=== PATIENT | female | born 1985 | race Caucasian/White ===

== ENCOUNTER 2017-08-20 13:16 | Inpatient (IN) | payer OTHER ==
[2017-08-20 13:35] VITALS: BMI 27.4
--- NOTE | 2017-08-20 14:38 | OBHP ---
Datetime: 08/20/2017 14:27 IP Adm Impression: Term, intrauterine IP Admit Plan: Admit to unit; Initiate Section protocol Admit Comment, IP Provider: 31 yo edc 517 by lmp _ 12wk us presents w/ ctxs rated 6/10 initial ly q1hr anow q 10 min. denies coitus, bleeding, srom or decreased fm. states ob course unremarkable. pmhx: denies pshx: denies obhx: cdx1 for breech nkda medic:pnv; fesor i: 37.5wks latent phase labor maternal tachycardia p: pt d/w dr oscar admit ekg for repeat cd ua, cbc, preop labs Pelvic Type - PN: Adequate Extremities - PN: Normal Abdomen - PN: Normal Lungs - PN: Normal Heart - PN: Abnormal Neurologic - PN: Normal HEENT - PN: Normal General - PN: Normal Presentation-Admit: Vertex FHR - Baseline A Provider: 130 Membranes, Provider: Intact EGA AdmitDate IP: 37.5 IP Chief Complaint: Other NICHD Variability Prov Fetus A: Moderate 6-25bpm NICHD Accel Fetus A IP Provider: 15X15 FHR Category Provider Fetus A: Category I NICHD Decel Fetus A IP Provider: None Dilatation, Provider: 0 Effacement, Provider: 0 Station, Provider: 0 Genitourinary Exam: Normal
--- NOTE | 2017-08-20 14:41 | OBADHP ---
Datetime: 08/20/2017 14:38 Admit Comment, IP Provider: 31 yo edc / by lmp _ 12wk us presents w/ ctxs rated 6/10 initial ly q1hr anow q 10 min. denies coitus, bleeding, srom or decreased fm. states ob course unremarkable. pmhx: denies pshx: denies obhx: cdx1 for breech nkda medic:pnv; fesor i: 37.5wks latent phase labor maternal tachycardia p: pt d/w dr oscar admit ekg for repeat cd ua, cbc, preop labs Datetime: 08/20/2017 14:27 Pelvic Type - PN: Adequate Extremities - PN: Normal Abdomen - PN: Normal Lungs - PN: Normal Heart - PN: Abnormal Neurologic - PN: Normal HEENT - PN: Normal General - PN: Normal Presentation-Admit: Vertex FHR - Baseline A Provider: 130 Membranes, Provider: Intact IP Chief Complaint: Other NICHD Variability Prov Fetus A: Moderate 6-25bpm NICHD Accel Fetus A IP Provider: 15X15 FHR Category Provider Fetus A: Category I NICHD Decel Fetus A IP Provider: None Dilatation, Provider: 0 Effacement, Provider: 0 Station, Provider: 0 Genitourinary Exam: Normal EGA AdmitDate IP: 37.5 IP Adm Impression: Term, intrauterine IP Admit Plan: Admit to unit; Initiate Section protocol
[2017-08-20 15:01] LABS: BASO % 0.2 % (0.0-2.0); EOS # 0.1 K/uL (0.0-0.7); EOS % 0.6 % (0.0-4.0); HEMOGLOBIN 11.7 g/dL (11.0-16.0); LYMPH % 19.3 % (20.0-40.0); MEAN CELL VOLUME 82.5 fL (81.0-99.0); MEAN CORPUSCULAR HGB CONC 33.9 g/dL (33.0-37.0); MEAN PLATELET VOLUME 8.5 fL (7.2-11.7); MONO # 0.7 K/uL (0.0-0.8); MONO % 6.5 % (0.0-10.0); NEUT # 7.6 K/uL (1.8-7.0); NEUT % 73.4 % (50.0-75.0); RBC 4.19 Mil/uL (3.80-5.20); RED CELL DISTRIBUTION WIDTH 16.3 % (11.5-14.5); WHITE BLOOD COUNT 10.4 K/uL (4.8-10.8)
--- NOTE | 2017-08-20 15:04 | PCM.RRT ---
FLOOR CLERK Nurses Assessment - Situation Date: 08/20/17 Time FLOOR CLERK was called: 14:39 FLOOR CLERK Responder Arrival Time:: 14:41 FLOOR CLERK Location:: Labor & Delivery Room Number: 1 FLOOR CLERK Reason for Call: Chest Pain, Tachycardia, Respiratory Distress FLOOR CLERK Called By: Physician - IV IV Inserted during FLOOR CLERK?: No - Respiratory FLOOR CLERK Delivery Method: Non Rebreather @% Oxygen Flow Rate: 10 Received Nebulizer Treatments: No Was the Patient Ventilated with Bag/Mask 100% O2?: No Secretions Suctioned?: No Was the Patient Intubated?: No Was the Patient Placed on a Ventilator?: No - Medication Medications Administered During FLOOR CLERK: N/A - Diagnostic Test Ordered EKG: Yes (Rn from ICU came to preform) Chest X-Ray: No CT Scan: No CPR started during FLOOR CLERK?: No - Vital Signs Vital Signs: Rapid Response Vital Sign Blood Pressure 112/75 Pulse Rate 135 Respiratory Rate 24 Temperature 98.9 F Oxygen Saturation 98 - Time FLOOR CLERK Ended Time FLOOR CLERK Ended: 14:57 - Vital Signs at end of FLOOR CLERK Vital Signs at end of FLOOR CLERK: Rapid Response End Vital Sign Blood Pressure 115/83 Pulse Rate 96 Respiratory Rate 22 Temperature 98.7 F O2 Sat by Pulse Oximetry 99 - Recommendations Notifications: Attending Physician, Consultations, Family or Designated Caregiver I.Reason for FLOOR CLERK - A) Acute Change in Patient: Subjective: Patient was tachy in the 130s on presentation. Quickly returned to low 100s. On nonrebreather. EKG performed. Sinus tachy. Patient much more comfortable. Anxious for pending Csection. No other complaints at this time - Respiratory Oxygen Delivery Method: Non Rebreather @% Oxygen Flow Rate: 10
[2017-08-20] MEDS ORDERED: Sodium Citrate/Citric Acid 15 ml Sol ONE (15:11)
[2017-08-20] MEDS ORDERED: cefOXitin IV 2 gm in Saline 2 GM/50 ML BAG IVPB ONE (15:12)
[2017-08-20 15:14] LABS: SQUAMOUS EPITHIAL 2 /hpf (0-5); URINE BACTERIA MANY (<OCC); URINE BILIRUBIN NEGATIVE (NEGATIVE); URINE BLOOD NEGATIVE (NEGATIVE); URINE CLARITY Hazy (Clear); URINE COLOR Yellow (YELLOW); URINE GLUCOSE (UA) NORMAL (Normal); URINE LEUKOCYTE ESTERASE NEG Leu/uL (Negative); URINE PROTEIN NEGATIVE (NEGATIVE); URINE UROBILINOGEN NORMAL mg/dL (0.2-1.0)
--- NOTE | 2017-08-20 15:15 | OBPN ---
Datetime: 08/20/2017 14:27 Membranes, Provider: Intact FHR - Baseline A Provider: 130 Presentation-Admit: Vertex IP Progress Note Comment: Pt c/o feeling like she was suffocating. c/o feeling faint during iv place ment. o: POx on ra 96% w/ deep inspiration 97-98% p: rapid response called. ekg: sinus tachy. cleared by rapid response for above d/w dr oscar who is here now to do . NICHD Accel Fetus A IP Provider: 15X15 FHR Category Provider Fetus A: Category I NICHD Variability Prov Fetus A: Moderate 6-25bpm Dilatation, Provider: 0 Effacement, Provider: 0 Station, Provider: 0 NICHD Decel Fetus A IP Provider: None
[2017-08-20] MEDS ORDERED: Oxytocin 20 units in LR 2,000 ML IV ONE (15:17)
[2017-08-20] MEDS ORDERED: Morphine 1 mg/ml preservative-free Inj(Duramorph) ONE (15:17)
[2017-08-20] MEDS ORDERED: ePHEDrine 50 mg/ml Inj ONE (15:21)
[2017-08-20] MEDS ORDERED: Phenylephrine 10 mg/ml Inj ONE (15:21)
[2017-08-20] MEDS ORDERED: Succinylcholine Chloride 20 mg/ml Syr (5 ml) IV ONE (15:23)
[2017-08-20 15:25] LABS: BLOOD UREA NITROGEN 6 mg/dL (7-17); GFR AFRICAN-AMERICAN > 60; GFR NON-AFRICAN AMERICAN > 60
[2017-08-20] MEDS ORDERED: cefOXitin IV 2 gm in Dextrose 2 GM/50 ML BAG IVPB ONE (15:32)
[2017-08-20] MEDS ORDERED: Sodium Citrate/Citric Acid 15 ml Sol PO ONE (15:41)
[2017-08-20] MEDS ORDERED: Lactated Ringer's 1,000 ML IV SCH ×2 (15:45→17:15)
[2017-08-20] MEDS ORDERED: Propofol 10 mg/ml Inj (20 ML) ONE (15:53)
[2017-08-20] MEDS ORDERED: ceFAZolin IV 1 gm in Dextrose 1 GM/50 ML BAG IVPB ONE (16:00)
[2017-08-20] MEDS ORDERED: Hydrocodone/Acetaminophen 5 mg /300 mg Tab PO PRN (17:10)
[2017-08-20] MEDS ORDERED: Oxytocin 30 UNIT 30 UNITS/500 ML BAG IV SCH (17:15)
[2017-08-20] MEDS ORDERED: Simethicone 80 mg Chewtab PO SCH (18:00)
--- NOTE | 2017-08-20 18:54 | CARD ---
APPROVED REPORT EKG Measurement Heart [id number] AL [id number] [id number] <Conclusion> Sinus tachycardia Nonspecific T wave abnormality Abnormal ECG
[2017-08-20] MEDS ORDERED: Sodium Chloride 0.9% 100 ML IVPB SCH (23:30)
[2017-08-21 08:04] LABS: BASO % 0.3 % (0.0-2.0); EOS % 0.3 % (0.0-4.0); LYMPH # 1.8 K/uL (1.0-4.3); LYMPH % 15.4 % (20.0-40.0); MEAN CELL VOLUME 82.9 fL (81.0-99.0); MEAN CORPUSCULAR HEMOGLOBIN 28.4 pg (27.0-31.0); MEAN CORPUSCULAR HGB CONC 34.2 g/dL (33.0-37.0); MEAN PLATELET VOLUME 8.4 fL (7.2-11.7); MONO # 0.7 K/uL (0.0-0.8); NEUT # 9.3 K/uL (1.8-7.0); NRBC % 0.1 % (0.0-2.0); RBC 3.52 Mil/uL (3.80-5.20); RED CELL DISTRIBUTION WIDTH 16.3 % (11.5-14.5); WHITE BLOOD COUNT 11.9 K/uL (4.8-10.8)
[2017-08-21] MEDS ORDERED: Simethicone 80 mg Chewtab PO SCH (10:30)
[2017-08-21] MEDS: Oxycodone/Acetaminophen 5/325 mg Tab PO PRN ×2 (14:15→21:57)
[2017-08-21] MEDS: Simethicone 80 mg Chewtab PO SCH ×3 (14:23→22:15)
[2017-08-22] MEDS: Oxycodone/Acetaminophen 5/325 mg Tab PO PRN ×2 (04:53→22:28)
[2017-08-22] MEDS: Simethicone 80 mg Chewtab PO SCH ×4 (09:53→22:29)
--- NOTE | 2017-08-22 12:13 | OBPPN ---
Datetime: 08/22/2017 12:09 PP Pain Prov: Within normal limits PP Breasts Prov: Normal PP Heart Prov: Normal PP Lungs Prov: Normal PP Abdomen/Uterus Prov: Normal PP Lochia Prov: Normal PP Vulva/Perineum Prov: Normal PP CVA Tenderness Prov: Normal PP Extremities Prov: Normal PP C/S Incision Prov: Normal PP Progress Prov: Normal PP Impression Prov: Normal progression PP Plan Prov: Continue present management PP Progress Note Prov: POD #2 No C/O VS Stable Abdomen Soft Wound Clean P: Home in AM if stable IP PP Procedures: None
--- NOTE | 2017-08-22 12:16 | OBDS ---
DELIVERY PERSONNEL Nurse Virology Teacher Certified: N/A Delivery Doctor: Yolette Joya MD Scrub Nurse: Stephie Maldonado RN Material Movers: Margret Arias RN Anesthesiologist: Bernardo Reyez MD Rat Culturist: N/Brad Resident: N/A MATERNAL INFORMATION Delivery Anesthesia: Spinal Medications in Delivery: See Anesthesia Record Estimated Blood Loss (ml): 500 Placenta Cultured: No Maternal Complications: None RN Comments: Ned George RN; Dain Yañez RN; Dr. Rascon; MOUNIKA Jimenez and Yolette Regalado Med. [facility] present in OR. Provider Comments: Anesthesia: Dr. Reyez, Spinal Linseed Oil Order Filler: Dr. Levine LABOR SUMMARY EDC: 09/05/2017 00:00 No. Babies in Womb: 1 Attempted: No Labor Anesthesia: None LABOR INFORMATION Reason for Induction: Not Applicable Reason for Induction Other: N/A Other Ripening Agents: N/A Oxytocin: N/A Group B Beta Strep: Negative Antibiotics # of Doses: N/A Antibiotics Time of Last Dose: N/A Steroids Given: None Reason Steroids Not Administered: Not Applicable Other Reason Not Administered: N/A MEMBRANES Membranes Rupture Method: Artificial Rupture of Membranes: 08/20/2017 16:21 Length of Rupture (hrs): 0.02 Amniotic Fluid Color: Clear Amniotic Fluid Amount: Moderate Amniotic Fluid Odor: Normal STAGES OF LABOR Stage 3 hrs: 0 Stage 3 min: 1 CSECTION DELIVERY Primary Indication: Repeat Elective Other Primary Indication: N/A Secondary Indication: N/A Other Secondary Indication: N/A CSection Urgency: Emergency CSection Incidence: Repeat Labor: Labor Elective: Nonelective CSection Incision: Lower Uterine Transverse BABY A INFORMATION Delivery Date/Time: 08/20/2017 16:22 Method of Delivery: Born in Route : No : N/A Forceps: N/A Vacuum Extraction: N/A Shoulder Dystocia : No SHOULDER DYSTOCIA BABY A Infant Delivery Date/Time: 08/20/2017 16:22 PRESENTATION/POSITION BABY A Presentation: Cephalic Cephalic Presentation: Vertex Breech Presentation: N/A PLACENTA INFORMATION BABY A Placenta Delivery Time : 08/20/2017 16:23 Placenta Method of Delivery: Manual Removal Placenta Status: Delivered SCORES BABY A Heart Rate 1 min: >100 bpm Resp Effort 1 min: Good Cry Reflex Irritability 1 min: Cough or Sneeze or Pulls Away Muscle Tone 1 min: Active Motion Color 1 min: Body [place], Extremities Blue Resuscitation Effort 1 min: Tactile Stimulation SCORE 1 MIN: 9 Heart Rate 5 min: >100 bpm Resp Effort 5 min: Good Cry Reflex Irritability 5 min: Cough or Sneeze or Pulls Away Muscle Tone 5 min: Active Motion Color 5 min: Body [place], Extremities Blue Resuscitation Effort 5 min: Tactile Stimulation SCORE 5 MIN: 9 INFANT INFORMATION BABY A Gestational Age at Delivery: 37.5 Gestational Status: Term Infant Outcome : Liveborn Condition : Stable Sex: Male IDENTIFICATION/MEDS BABY A ID Band Number: [id number] ID Band Location: Left Leg; Left Arm Sensor Applied: Yes Sensor Number: [id number] Sensor Location : Cord Clamp WEIGHT/LENGTH BABY A Birthweight (gms): 2775 Infant Weight (lb): 6 Infant Weight (oz): 2 Infant Length Inches: 19.25 Infant Length cms: 48.9 CORD INFORMATION BABY A No. Cord Vessels: 3 Nuchal Cord : N/A Nuchal Cord Other: N/A True Knot: N/A Cord pH Baby Arterial: N/A Cord pH Baby Venous: N/A Banking/Donate Info: N/A Suction: Mouth; Nose ASSESSMENT BABY A Infant Complications: None Physical Findings at Delivery: Within Normal Limits Respirations: Appears Normal Forming And Assembling Supervisor/ALS Called : Yes Infant Care By: Dr. Abiodun Yañez RN Transferred To: Nursery
--- NOTE | 2017-08-22 12:18 | OBDS ---
DELIVERY PERSONNEL Nurse Flame Channeler Certified: N/A Delivery Doctor: Yolette Joya MD Scrub Nurse: Stephie Maldonado RN Dielectric Embossing Machine Operator: Margret Arias RN Anesthesiologist: Bernardo Reyez MD Casing Material Weigher: N/Brad Resident: N/A MATERNAL INFORMATION Delivery Anesthesia: Spinal Medications in Delivery: See Anesthesia Record Estimated Blood Loss (ml): 500 Placenta Cultured: No Maternal Complications: None RN Comments: Ned George RN; Dain Yañez RN; Dr. Rascon; MOUNIKA Jimenez and Yolette Regalado Med. [facility] present in OR. Provider Comments: Anesthesia: Dr. Reyez, Spinal Press Machine Operator: Dr. Levine LABOR SUMMARY EDC: 09/05/2017 00:00 No. Babies in Womb: 1 Attempted: No Labor Anesthesia: None LABOR INFORMATION Reason for Induction: Not Applicable Reason for Induction Other: N/A Other Ripening Agents: N/A Oxytocin: N/A Group B Beta Strep: Negative Antibiotics # of Doses: N/A Antibiotics Time of Last Dose: N/A Steroids Given: None Reason Steroids Not Administered: Not Applicable Other Reason Not Administered: N/A MEMBRANES Membranes Rupture Method: Artificial Rupture of Membranes: 08/20/2017 16:21 Length of Rupture (hrs): 0.02 Amniotic Fluid Color: Clear Amniotic Fluid Amount: Moderate Amniotic Fluid Odor: Normal STAGES OF LABOR Stage 3 hrs: 0 Stage 3 min: 1 CSECTION DELIVERY Primary Indication: Repeat Elective Other Primary Indication: N/A Secondary Indication: N/A Other Secondary Indication: N/A CSection Urgency: Emergency CSection Incidence: Repeat Labor: Labor Elective: Nonelective CSection Incision: Lower Uterine Transverse BABY A INFORMATION Delivery Date/Time: 08/20/2017 16:22 Method of Delivery: Born in Route : No : N/A Forceps: N/A Vacuum Extraction: N/A Shoulder Dystocia : No SHOULDER DYSTOCIA BABY A Infant Delivery Date/Time: 08/20/2017 16:22 PRESENTATION/POSITION BABY A Presentation: Cephalic Cephalic Presentation: Vertex Breech Presentation: N/A PLACENTA INFORMATION BABY A Placenta Delivery Time : 08/20/2017 16:23 Placenta Method of Delivery: Manual Removal Placenta Status: Delivered SCORES BABY A Heart Rate 1 min: >100 bpm Resp Effort 1 min: Good Cry Reflex Irritability 1 min: Cough or Sneeze or Pulls Away Muscle Tone 1 min: Active Motion Color 1 min: Body [place], Extremities Blue Resuscitation Effort 1 min: Tactile Stimulation SCORE 1 MIN: 9 Heart Rate 5 min: >100 bpm Resp Effort 5 min: Good Cry Reflex Irritability 5 min: Cough or Sneeze or Pulls Away Muscle Tone 5 min: Active Motion Color 5 min: Body [place], Extremities Blue Resuscitation Effort 5 min: Tactile Stimulation SCORE 5 MIN: 9 INFANT INFORMATION BABY A Gestational Age at Delivery: 37.5 Gestational Status: Term Infant Outcome : Liveborn Condition : Stable Sex: Male IDENTIFICATION/MEDS BABY A ID Band Number: [id number] ID Band Location: Left Leg; Left Arm Sensor Applied: Yes Sensor Number: [id number] Sensor Location : Cord Clamp WEIGHT/LENGTH BABY A Birthweight (gms): 2775 Infant Weight (lb): 6 Infant Weight (oz): 2 Infant Length Inches: 19.25 Infant Length cms: 48.9 CORD INFORMATION BABY A No. Cord Vessels: 3 Nuchal Cord : N/A Nuchal Cord Other: N/A True Knot: N/A Cord pH Baby Arterial: N/A Cord pH Baby Venous: N/A Banking/Donate Info: N/A Suction: Mouth; Nose ASSESSMENT BABY A Infant Complications: None Physical Findings at Delivery: Within Normal Limits Respirations: Appears Normal Curber/ALS Called : Yes Infant Care By: Dr. Abiodun Yañez RN Transferred To: Nursery
--- NOTE | 2017-08-22 12:21 | OBDCSUM ---
Datetime: 08/22/2017 12:18 Discharged to, Provider: Home Follow up at, Provider: Dr. Joya Disch Instr Activity: Normal activity Disch Instr Diet: Regular Discharge Instructions, Provider: Routine instructions given Discharge Diagnosis, Provider: Labor Discharge Time: 08/23/2017 10:14 Follow up in weeks, Provider: 4 weeks Disch Referrals: None Contraception discussed, Prov: Yes Discharge Comment, Provider: Nehal Diez
[2017-08-23] MEDS: Simethicone 80 mg Chewtab PO SCH ×2 (10:36→14:29)
[2017-08-23 16:20] VITALS: BP 101/68; PULSE 99; RESP 20; O2SAT 99
[2017-08-23 23:13] VITALS: TEMP 99
== END 2017-08-23 18:41 | disposition home or self-care (01) | DRG 766 ==
LOC: C.EROB 13:16 → C.4D 14:50 → C.4M 21:00
PROVIDERS: ADMIT Obstetrics & Gynecology Gynecology; ATTEND Obstetrics & Gynecology Gynecology
PROC: 10D00Z1 Extraction of Products of Conception, Low, Open Approach (ICD-10-PCS; principal; 2017-08-20)
DX: O34.211 Maternal care for low transverse scar from previous cesarean delivery (principal); Z3A.37 37 weeks gestation of pregnancy; Z37.0 Single live birth